=== PATIENT | male | born 1985 | race Caucasian/White ===

== ENCOUNTER → 2017-07-16 08:17 | Outpatient (CLI) | payer OTHER, SELFPAY ==
[2017-07-16 08:24] LABS: Bacteria 0 SEEN /hpf (None Seen); Mucous, Urine 0 SEEN /hpf (<or=2+); Red Blood Cells-Urine 0 SEEN /hpf (0-5); Squamous Epithelial Cells - UA 0 SEEN /hpf (0-5); White Blood Cells 0 SEEN /hpf (0-5)
[2017-07-16 11:06] LABS: Color, Urine Straw (Yellow); Glucose, Dipstick Normal (Normal); Ketone-Dipstick Negative (Negative); Leukocyte Esterase-Dipstick Negative /ul (Negative); Nitrite-Dipstick Negative (Negative); Occult Blood-Urine Negative /ul (Negative); Protein-Dipstick Negative (Negative); Specific Gravity, Urine 1.005 (1.002-1.030); Urine Bilirubin Dipstick Negative (Negative); Urine Clarity Clear (Clear); Urine Urobilinogen Normal (Normal)
[2017-07-16 11:19] LABS: Amphetamine Urine VISTA NEGATIVE (<1000 ng/mL); Barbiturate Urine VISTA NEGATIVE (< 200 ng/mL); Benzodiazepine Urine VISTA NEGATIVE (< 200 ng/mL); Cocaine Urine VISTA NEGATIVE (< 300 ng/mL); Ecstacy Urine VISTA NEGATIVE (< 500 ng/mL); Methadone Urine VISTA NEGATIVE (< 300 ng/mL); PCP Urine VISTA NEGATIVE (< 25 ng/mL); THC Urine VISTA NEGATIVE (< 50 ng/mL); Vista UDS pH Range 7
[2017-07-16 12:47] LABS: Chlamydia Trachomatis by PCR Negative (Negative); Neisserai gonorrhoeae by PCR Negative (Negative); Probe Check PASS; Sample Adequacy Control PASS; Specimen Processing Control PASS
== END ==
PROVIDERS: Family Provider Family Medicine; PCP Family Medicine; Visit Provider Family Medicine
DX: R30.0 Dysuria (principal); Z87.898 Personal history of other specified conditions
CPT/HCPCS: 80307; 81001; 87086; 87491; 87591

== ENCOUNTER 2018-12-18 01:49 | Emergency (ER) | payer OTHER, SELFPAY ==
[2018-12-18 01:50] VITALS: BP 140/90; PULSE 87; RESP 20; TEMP 36.6; O2SAT 97; BMI 22.1
--- NOTE | 2018-12-18 02:27 | ED.VIS.GEN ---
History of Present Illness Chief Complaint: Eye Problem Detail of Chief Complaint: Bilateral eye pain Informant: Patient, Family Onset: Yesterday Current Severity: Moderate Maximum Severity: Severe Narrative: Patient presents with bilateral eye pain, light sensitivity, and tearing. He was using a overlay plastician which he states is similar to a track welder at noon yesterday. Around 6-8PM he started developing bilateral eye pain and watering. He states he has had Welders burn before but never this severe. He does not wear glasses or contacts. He admits to not using any eye protection when he was using the cutter earlier. Past Medical History - Allergies and Home Meds Allergies/Adverse Reactions: Allergies No Known Allergies Allergy (Verified 12/18/18 01:52) Primary Care Physician: NOT,DEFINED [Primary Care Provider] - Prior records reviewed: Yes Past Medical History: - - Reviewed Lives: Spouse/ Significant Other Smoking Status: Current every day smoker Review of Systems General: Denies: Chills, Fever Eyes: Reports: - - Bilateral eye pain and watering ENT: Denies: Bilateral ear pain Cardiovascular: Denies: Chest pain Respiratory: Denies: Dyspnea Gastrointestinal: Denies: Abdominal pain Musculoskeletal: Denies: Neck pain, Back pain Neurological: Denies: Headache Physical Exam Vital Signs/Narrative: Vital Signs Temp Pulse Resp BP Pulse Ox 12/18/18 01:50 98 F 87 20 H 140/90 H 97 Inital Vital Signs reviewed: Yes General: Well nourished, Well developed Eyes: - - Mild eyelid edema. Eyes are injected and watering bilaterally. Pupils are equal and reactive. ENT: Moist mucous membranes Neck: Supple Cardiovascular: Regular rate, Regular rhythm Respiratory: No distress, CTA bilaterally Abdomen: Soft, Nontender Skin: Normal color Neurological: Alert, Oriented x3 Diagnostic/Tx/Re-eval - Medical Decision Making Tetracaine is applied to both eyes. Patient has resolution of his pain. Fluorescein stain reveals mild light uptake diffusely. Patient will be given a few [place] at home for pain. He will be given antibiotic eyedrops. Impression: UV keratitis ED Disposition - Plan for ED Patient: Disposition: Home or Assisted Living Diagnosis: UV keratitis Instructions: FLASH BURN, Eye Prescriptions: Hydrocodone Bitart/Apap 5-325 [[place] 5MG-325MG] 1 tab PO Q6H PRN PRN 3 Days #10 tab PRN Reason: Pain Prescription Printed Referrals: Marlo Martinez MD [STAFF PHYSICIAN] - 1-2 Days if not improving
[2018-12-18] MEDS: Fluorescein 1 MG STRIP 1 STRIP EACH EYE (02:40)
[2018-12-18] MEDS: Gentamicin Sulfate 1 OPTH.BTL 1 DRP EACH EYE (02:40)
[2018-12-18] MEDS: Tetracaine 0.5% Ophthalmic Bottle 1 DRP EACH EYE (02:43)
[2018-12-18 02:47] VITALS: BP 136/88; PULSE 82; RESP 16; O2SAT 96
== END 2018-12-18 02:47 | disposition home or self-care (01) ==
PROVIDERS: Emergency Provider Emergency Medicine; Family Provider Family Medicine; PCP Family Medicine
DX: H16.9 Unspecified keratitis (principal); F17.200 Nicotine dependence, unspecified, uncomplicated
CPT/HCPCS: 99282

== ENCOUNTER → 2025-01-13 | Outpatient (CLI) | payer BC, SELFPAY ==
--- OUTSIDE RECORDS SUMMARY | 2025-01-13 14:18 | XMS RPT_ITS | CCD ---
Author Organization [facility] Care Team Providers Care Dog Beautician Name Role Phone Yusef Hawthorne Primary Care Provider [phone] Adan Nye Primary Care Unavailable Provider, Ed Physician Attending Unavailab Yusef Evans Primary Care Provider Unavailable Primary Care Provider UnavailVERONIQUE Hurt Referring Unavailable VERONIQUE BUSTAMANTE Attending Unavailable ANA JESUS Attending Unavailable Medications Current Medications Medication Drug Class(es) Dates Sig (Normalized) Sig (Original) vancomycin 125 mg oral capsule (1 source) Glycopeptide Antibacterial Start: 11-30-2024 End: 12-10-2024 take 1 capsule by mouth four times daily vancomycin (VANCOCIN) 125 mg capsule Take 1 capsule by mouth four times daily for 10 days. 40 capsule 11/30/2024 12/10/2024 Active Problems Problem Classification Problem Date Documented Da te Episodic/Chronic Abdominal pain (2 sources) Pain in pelvis; Translations: [Pelvic and perineal pain] Onset: 11-28-2024 11-28-2024 Episodic Acute and chronic tonsillitis (1 source) Peritonsillar abscess; Translations: [Tonsil, abscess] Onset: 10-25-2024 Episodic Genitourinary symptoms and ill-defined conditions (2 sources) Microscopic hematuria; Translations: [Other microscopic hematuria] Onset: 11-28-2024 11-28-2024 Episodic Nausea and vomiting (2 sources) Nausea; Translations: [Nausea] Onset: 11-29-2024 11-28-2024 Episodic Other gastrointestinal disorders (1 source) Diarrhea; Translations: [Diarrhea, unspecified] 11-28-2024 Episodic Other gastrointestinal disorders (1 source) Diarrhea, unspecified; Translations: [Diarrhea, unspecified type] Onset: 11-28-2024 Episodic Other nutritional; endocrine; and metabolic disorders (1 source) Loss of appetite; Translations: [Anorexia] 11-28-2024 Episodic Other nutritional; endocrine; and metabolic disorders (1 source) Anorexia; Translations: [Loss of appetite] Onset: 11-28-2024 Episodic Other upper respiratory infections (1 source) Acute pharyngitis, unspecified; Translations: [Sore throat] Onset: 10-25-2024 Episodic Spondylosis; intervertebral disc disorders; other back problems (2 sources) Acute low back pain; Translations: [Acute low back pain without sciatica, unspecified back pain laterality] Episodic Results Test Name Value Interpretation Reference Range Facility Amylase SerPl-cCncon 025 Amylase [Catalytic activity/Vol] 51 U/L Normal 30-104 [facility] Comment on above: Order Comment: Michele sol Type: BLOOD SPECIMEN Ordering Facility: [facility] Address: [address] [place] [address] Performed By: #### 2 4323-8, 3040-3, 1798-8 #### [facility] CLIA [id number] [address] [place] [address] [place] C diff Tox gens Stl Ql MELVIN+p robeon 11-29-2024 C. difficile toxin genes MELVIN+probe Ql (Stl) Positive Abnormal Negative for C. difficile toxin by PCR [facility] Comment on above: Order Comment: Michele sol Type: STOOL SPECIMEN Ordering Facility: [facility] Address: [address] [place] [address] Result Comment: A po sitive PCR result may indicate C.difficile infection or colonization. The positive predictive value of this test for C.difficile infection is highest for patients with clinically significant diarrhea (>=3 unformed stools in 24h) who do not have an alternative explanation (e.g., recent receipt of laxatives). Toxin EIA testing will also be performed as recommended by IDSA clinical practice guidelines for institutions without pre-agreed criteria for specimen submission. Performed By: #### 5 4067-4, CDEIA #### [facility] CLIA [id number] [address] [id number] [address] [place] CBC W Auto Differential pane l (Bld)on 11-29-2024 Basophils (Bld) [#/Vol] 0.06 10*3/uL Normal <0.11 [facility] Comment on above: Order Comment: Speci men Type: BLOOD SPECIMEN Ordering Facility: [facility] Address: [address] [place] [address] Performed By: #### 5 7021-8 #### [facility] CLIA [id number] [address] [place] [address] [place] Basophils/100 WBC (Bld) 0.6 % Normal [facility] Comment on above: Order Comment: Speci men Type: BLOOD SPECIMEN Ordering Facility: [facility] Address: [address] [place] [address] Performed By: #### 5 7021-8 #### [facility] CLIA [id number] [address] [place] [address] [place] Differential cell count method Nom (Bld) Auto Normal [facility] Comment on above: Order Comment: Speci men Type: BLOOD SPECIMEN Ordering Facility: [facility] Address: [address] [place] [address] Performed By: #### 5 7021-8 #### [facility] CLIA [id number] [address] [place] [address] [place] Eosinophils (Bld) [#/Vol] 0.24 10*3/uL Normal <0.46 [facility] Comment on above: Order Comment: Speci men Type: BLOOD SPECIMEN Ordering Facility: [facility] Address: [address] [place] [address] Performed By: #### 5 7021-8 #### [facility] CLIA [id number] [address] [place] [address] [place] Eosinophils/100 WBC (Bld) 2.2 % Normal [facility] Comment on above: Order Comment: Speci men Type: BLOOD SPECIMEN Ordering Facility: [facility] Address: [address] [place] [address] Performed By: #### 5 7021-8 #### [facility] CLIA [id number] [address] [place] [address] [place] Erythrocyte distribution width (RBC) [Ratio] 12.5 % Normal 11.5-15.0 [facility] Comment on above: Order Comment: Speci men Type: BLOOD SPECIMEN Ordering Facility: [facility] Address: [address] [place] [address] Performed By: #### 5 7021-8 #### [facility] CLIA [id number] [address] [place] [address] [place] Hematocrit (Bld) [Volume fraction] 40.2 % Normal 39.0-51.0 [facility] Comment on above: Order Comment: Speci men Type: BLOOD SPECIMEN Ordering Facility: [facility] Address: [address] [place] [address] Performed By: #### 5 7021-8 #### [facility] CLIA [id number] [address] [place] [address] [place] Hemoglobin (Bld) [Mass/Vol] 13.8 g/dL Normal 13.0-17.0 [facility] Comment on above: Order Comment: Speci men Type: BLOOD SPECIMEN Ordering Facility: [facility] Address: [address] [place] [address] Performed By: #### 5 7021-8 #### [facility] CLIA [id number] [address] [place] [address] [place] Immature granulocytes (Bld) [#/Vol] 0.03 10*3/uL Normal <0.10 [facility] Comment on above: Order Comment: Speci men Type: BLOOD SPECIMEN Ordering Facility: [facility] Address: [address] [place] [address] Performed By: #### 5 7021-8 #### [facility] CLIA [id number] [address] [place] [address] [place] Immature granulocytes/100 WBC (Bld) 0.3 % Normal [facility] Comment on above: Order Comment: Speci men Type: BLOOD SPECIMEN Ordering Facility: [facility] Address: [address] [place] [address] Performed By: #### 5 7021-8 #### [facility] CLIA [id number] [address] [place] [address] [place] Lymphocytes (Bld) [#/Vol] 2.55 10*3/uL Normal 1.00-4.00 [facility] Comment on above: Order Comment: Speci men Type: BLOOD SPECIMEN Ordering Facility: [facility] Address: [address] [place] [address] Performed By: #### 5 7021-8 #### [facility] CLIA [id number] [address] [place] [address] [place] Lymphocytes/100 WBC (Bld) 23.4 % Normal [facility] Comment on above: Order Comment: Speci men Type: BLOOD SPECIMEN Ordering Facility: [facility] Address: [address] [place] [address] Performed By: #### 5 7021-8 #### [facility] CLIA [id number] [address] [place] [address] [place] MCH (RBC) [Entitic mass] 32.3 pg Normal 26.0-34.0 [facility] Comment on above: Order Comment: Speci men Type: BLOOD SPECIMEN Ordering Facility: [facility] Address: [address] [place] [address] Performed By: #### 5 7021-8 #### [facility] CLIA [id number] [address] [place] [address] [place] MCHC (RBC) [Mass/Vol] 34.3 g/dL Normal 30.5-36.0 [facility] Comment on above: Order Comment: Speci men Type: BLOOD SPECIMEN Ordering Facility: [facility] Address: [address] [place] [address] Performed By: #### 5 7021-8 #### [facility] CLIA [id number] [address] [place] [address] [place] MCV (RBC) [Entitic vol] 94.1 fL Normal 80.0-100.0 [facility] Comment on above: Order Comment: Speci men Type: BLOOD SPECIMEN Ordering Facility: [facility] Address: [address] [place] [address] Performed By: #### 5 7021-8 #### [facility] CLIA [id number] [address] [place] [address] [place] Monocytes (Bld) [#/Vol] 0.84 10*3/uL Normal <0.87 [facility] Comment on above: Order Comment: Speci men Type: BLOOD SPECIMEN Ordering Facility: [facility] Address: [address] [place] [address] Performed By: #### 5 7021-8 #### [facility] CLIA [id number] [address] [place] [address] [place] Monocytes/100 WBC (Bld) 7.7 % Normal [facility] Comment on above: Order Comment: Speci men Type: BLOOD SPECIMEN Ordering Facility: [facility] Address: [address] [place] [address] Performed By: #### 5 7021-8 #### [facility] CLIA [id number] [address] [place] [address] [place] Neutrophils (Bld) [#/Vol] 7.18 10*3/uL Normal 1.45-7.50 [facility] Comment on above: Order Comment: Speci men Type: BLOOD SPECIMEN Ordering Facility: [facility] Address: [address] [place] [address] Performed By: #### 5 7021-8 #### [facility] CLIA [id number] [address] [place] [address] [place] Neutrophils/100 WBC (Bld) 65.8 % Normal [facility] Comment on above: Order Comment: Speci men Type: BLOOD SPECIMEN Ordering Facility: [facility] Address: [address] [place] [address] Performed By: #### 5 7021-8 #### [facility] CLIA [id number] [address] [place] [address] [place] Nucleated RBC (Bld) [#/Vol] 10*3/uL Normal <0.01 [facility] Comment on above: Order Comment: Speci men Type: BLOOD SPECIMEN Ordering Facility: [facility] Address: [address] [place] [address] Performed By: #### 5 7021-8 #### [facility] CLIA [id number] [address] [place] [address] [place] Nucleated RBC/100 WBC (Bld) [Ratio] 0.0 /100 WBC Normal [facility] Comment on above: Order Comment: Speci men Type: BLOOD SPECIMEN Ordering Facility: [facility] Address: [address] [place] [address] Performed By: #### 5 7021-8 #### [facility] CLIA [id number] [address] [place] [address] [place] Platelet mean volume (Bld) [Entitic vol] 9.1 fL Normal 9.0-12.7 [facility] Comment on above: Order Comment: Speci men Type: BLOOD SPECIMEN Ordering Facility: [facility] Address: [address] [place] [address] Performed By: #### 5 7021-8 #### [facility] CLIA [id number] [address] [place] [address] [place] Platelets (Bld) [#/Vol] 372 10*3/uL Normal 150-400 [facility] Comment on above: Order Comment: Speci men Type: BLOOD SPECIMEN Ordering Facility: [facility] Address: [address] [place] [address] Performed By: #### 5 7021-8 #### [facility] CLIA [id number] [address] [place] [address] [place] RBC (Bld) [#/Vol] 4.27 10*6/uL Normal 4.20-6.00 [facility] Comment on above: Order Comment: Speci men Type: BLOOD SPECIMEN Ordering Facility: [facility] Address: [address] [place] [address] Performed By: #### 5 7021-8 #### [facility] CLIA [id number] [address] [place] [address] [place] WBC (Bld) [#/Vol] 10.90 10*3/uL Normal 3.70-11.00 [facility] Comment on above: Order Comment: Speci men Type: BLOOD SPECIMEN Ordering Facility: [facility] Address: [address] [place] [address] Performed By: #### 5 7021-8 #### [facility] CLIA [id number] [address] [place] [address] [place] CLOSTRIDIUM DIFFICILE TOXIN BY EIAon 11-29-2024 C. difficile toxin A+B IA Ql (Stl) Detected Abnormal Negative for C. difficile toxin [facility] Comment on above: Order Comment: Speci men Type: STOOL SPECIMENOrdering Facility: [facility] Address: [address] [place] [address] Performed By: #### 5 4067-4, CDEIA ####[facility] [id number] [place] [address] [place] Comprehensive metabolic 2000 panelon 11-29-2024 Albumin [Mass/Vol] 4.6 g/dL Normal 3.9-4.9 [facility] Comment on above: Order Comment: Speci men Type: BLOOD SPECIMEN Ordering Facility: [facility] Address: [address] [place], [place] [address] Performed By: #### 2 4323-8, 3039-3, 1797-10 #### [facility] CLIA [id number] [address] [place], [place] [address] [place] ALP [Catalytic activity/Vol] 74 U/L Normal 38-113 [facility] Comment on above: Order Comment: Speci men Type: BLOOD SPECIMEN Ordering Facility: [facility] Address: [address] [place], [place] [address] Performed By: #### 2 4323-8, 3, 1797-10 #### [facility] CLIA [id number] [address] [place] [address] [place] ALT [Catalytic activity/Vol] 18 U/L Normal 10-54 [facility] Comment on above: Order Comment: Speci men Type: BLOOD SPECIMEN Ordering Facility: [facility] Address: [address] [place] [address] Performed By: #### 2 4323-8, 3, 1797-10 #### [facility] CLIA [id number] [address] [place] [address] [place] Anion gap [Moles/Vol] 13 mmol/L Normal 8-15 [facility] Comment on above: Order Comment: Speci men Type: BLOOD SPECIMEN Ordering Facility: [facility] Address: [address] [place], [place] [address] Performed By: #### 2 4323-8, 3, 1797-10 #### [facility] CLIA [id number] [address] [place] [address] [place] AST [Catalytic activity/Vol] 25 U/L Normal 14-40 [facility] Comment on above: Order Comment: Speci men Type: BLOOD SPECIMEN Ordering Facility: [facility] Address: [address] [place], [place] [address] Performed By: #### 2 4323-8, 304-3, 1797-10 #### [facility] CLIA [id number] [address] [place] [address] [place] Bilirubin [Mass/Vol] 0.3 mg/dL Normal 0.2-1.3 [facility] Comment on above: Order Comment: Speci men Type: BLOOD SPECIMEN Ordering Facility: [facility] Address: [address] [place] [address] Performed By: #### 2 4323-8, 3039-3, 1797-10 #### [facility] CLIA [id number] [address] [place] [address] [place] Calcium [Mass/Vol] 9.7 mg/dL Normal 8.5-10.2 [facility] Comment on above: Order Comment: Speci men Type: BLOOD SPECIMEN Ordering Facility: [facility] Address: [address] [place] [address] Performed By: #### 2 4323-8, 3039-3, 1797-10 #### [facility] CLIA [id number] [address] [place] [address] [place] Chloride [Moles/Vol] 104 mmol/L Normal 98-107 [facility] Comment on above: Order Comment: Speci men Type: BLOOD SPECIMEN Ordering Facility: [facility] Address: [address] [place] [address] Performed By: #### 2 4323-8, 3039-3, 1797-10 #### [facility] CLIA [id number] [address] [place], [place] [address] [place] CO2 [Moles/Vol] 25 mmol/L Normal 22-30 [facility] Comment on above: Order Comment: Speci men Type: BLOOD SPECIMEN Ordering Facility: [facility] Address: [address] [place], [place] [address] Performed By: #### 2 4323-8, 3039-3, 1797-10 #### [facility] CLIA [id number] [address] [place] [address] [place] Creatinine [Mass/Vol] 0.92 mg/dL Normal 0.73-1.22 [facility] Comment on above: Order Comment: Speci men Type: BLOOD SPECIMEN Ordering Facility: [facility] Address: [address] [place] [address] Performed By: #### 2 4323-8, 3039-3, 1797-10 #### [facility] CLIA [id number] [address] [place] [address] [place] eGFRcr SerPlBld CKD-EPI 2020 109 mL/min/1.73m??? Normal >=60 [facility] Comment on above: Order Comment: Michele sol Type: BLOOD SPECIMEN Ordering Facility: [facility] Address: [address] [place] [address] Result Comment: Kaelyn mated Glomerular Filtration Rate (eGFR) is calculated using the 2020 CKD-EPI creatinine equation. This equation utilizes serum creatinine, sex, and age as parameters. The creatinine assay has traceable calibration to isotope dilution-mass spectrometry. Refer to KDIGO guidelines for clinical interpretation. In patients with unstable renal function, e.g. those with acute kidney injury, the eGFR may not accurately reflect actual GFR. Performed By: #### 2 4323-8, 3, 1797-10 #### [facility] CLIA [id number] [address] [place] [address] [place] Glucose [Mass/Vol] 78 mg/dL Normal 74-99 [facility] Comment on above: Order Comment: Speci men Type: BLOOD SPECIMEN Ordering Facility: [facility] Address: [address] [place] [address] Result Comment: The [place] [employer] (ADA) provides guidance for cutoff values for fasting glucose and random glucose. The ADA defines fasting as no caloric intake for at least 8 hours. Fasting plasma glucose results between 100 to 125 mg/dL indicate increased risk for diabetes (prediabetes). Fasting plasma glucose results greater than or equal to 126 mg/dL meet the criteria for diagnosis of diabetes. In the absence of unequivocal hyperglycemia, results should be confirmed by repeat testing. In a patient with classic symptoms of hyperglycemia or hyperglycemic crisis, random plasma glucose results greater than or equal to 200 mg/dL meet the criteria for diagnosis of diabetes. Reference: Standards of Medical Care in Diabetes 2016, [place] [employer]. Diabetes Care. 2016.39(Suppl 1). Performed By: #### 2 4323-8, 3, 1797-10 #### [facility] CLIA [id number] [address] [place] [address] [place] Potassium [Moles/Vol] 4.3 mmol/L Normal 3.7-5.1 [facility] Comment on above: Order Comment: Speci men Type: BLOOD SPECIMEN Ordering Facility: [facility] Address: [address] [place] [address] Performed By: #### 2 8, 3039-05, 1797-10 #### [facility] CLIA [id number] [address] [place] [address] [place] Protein [Mass/Vol] 7.3 g/dL Normal 6.3-8.0 [facility] Comment on above: Order Comment: Speci men Type: BLOOD SPECIMEN Ordering Facility: [facility] Address: [address] [place] [address] Performed By: #### 2 4322-8, 3039-05, 1797-10 #### [facility] CLIA [id number] [address] [place] [address] [place] Sodium [Moles/Vol] 142 mmol/L Normal 136-144 [facility] Comment on above: Order Comment: Speci men Type: BLOOD SPECIMEN Ordering Facility: [facility] Address: [address] [place] [address] Performed By: #### 2 4323-8, 3, 1797-10 #### [facility] CLIA [id number] [address] [place] [address] [place] Urea nitrogen [Mass/Vol] 10 mg/dL Normal 9-24 [facility] Comment on above: Order Comment: Speci men Type: BLOOD SPECIMEN Ordering Facility: [facility] Address: [address] [place] [address] Performed By: #### 2 4323-8, 3040-3, 1798-8 #### [facility] CLIA [id number] [address] [place] [address] [place] Gastrointestinal pathogens i dentified MELVIN+probe Nom (Stl)on 11-29-2024 Campylobacter sp DNA MELVIN+probe Nom (Unsp spec) Not detected Normal Not Detected [facility] Comment on above: Order Comment: Speci men Type: STOOL SPECIMEN Ordering Facility: [facility] Address: [address] [place] [address] Performed By: #### 7 9390-1 #### [facility] CLIA [id number] [address] [place] [address] [place] Salmonella sp DNA MELVIN+probe Ql (Unsp spec) Not detected Normal Not Detected [facility] Comment on above: Order Comment: Speci men Type: STOOL SPECIMEN Ordering Facility: [facility] Address: [address] [place] [address] Performed By: #### 7 9390-1 #### [facility] CLIA [id number] [address] [place] [address] [place] Shiga toxin stx gene MELVIN+probe Nom (Unsp spec) Not detected Normal Not Detected [facility] Comment on above: Order Comment: Speci men Type: STOOL SPECIMEN Ordering Facility: [facility] Address: [address] [place] [address] Performed By: #### 7 9390-1 #### [facility] CLIA [id number] [address] [place] [address] [place] Shigella sp DNA MELVIN+probe Ql (Unsp spec) Not detected Normal Not Detected [facility] Comment on above: Order Comment: Speci men Type: STOOL SPECIMEN Ordering Facility: [facility] Address: [address] [place] [address] Performed By: #### 7 9390-1 #### [facility] CLIA [id number] [address] [place] [address] [place] Lipase SerPl-cCncon 11-30-19 25 Lipase [Catalytic activity/Vol] 25 U/L Normal 16-61 [facility] Comment on above: Order Comment: Speci men Type: BLOOD SPECIMEN Ordering Facility: [facility] Address: [address] [place] [address] Performed By: #### 2 4323-8, 3040-3, [id number] #### [facility] CLIA [id number] [address] [place] [address] [place] O+P Spec Microon 11-29-2024 Ova and parasites identified LM Nom (Unsp spec) OVA AND PARASITE EXAM: No Parasites Seen Normal [facility] Comment on above: Performed By: #### 6 73-4 #### [facility] CLIA [id number] [address] [place] [address] [place] Bacteria Ur Culton 5 Bacteria identified Cx Nom (U) CULTURE, URINE: No growth (<1,000 CFU/ml) Normal [facility] Comment on above: Performed By: #### 6 30-4 #### [facility] CLIA [id number] [address] [place] [address] [place] CNOVon 11-28-2024 CNOV Office Visit ([facility]) TERESA,PARKER D ([id number]) 1985 M Date Time Provider Department 11/28/24 5:15 PM VERONIQUE BUSTAMANTE During your visit today, we recorded the following information about you: Temperature Pulse Respiration Blood pressure 98.2 degrees 92/minute 16/minute 102/64 Weight 79.1 kg Veronique Bustamante APRN.[facility] 11/28/2024 5:41 PM Signed [facility] [place] Moore is a 39 year old male. Patient presents with: Diarrhea: gi upset and nausea x 1 week Diarrhea Pertinent negatives include no chills. The patient is a 39-year-old male presenting with abdominal pain, diarrhea, and anorexia x1 week. Abdominal Pain and Diarrhea: - Abdominal pain and diarrhea x1 week. - Initially experienced fever and chills for 2 days, which have since resolved. - Reports anorexia and immediate diarrhea following food intake. - Describes stools as partially formed, followed by diarrhea. - Recent travel to [place]; symptoms worsened after returning. - Denies use of medications for symptom relief; increasing fluid intake with Gatorade and water. - Denies hematochezia, melena, nausea, or emesis. - Describes some pelvic cramping and discomfort Dysuria: - Reports mild dysuria. Reports recent use of clindamycin for 10 days for treatment of suspected tonsillar abscess (see 10/25/24 visit). Review of Systems Constitutional: Positive for appetite change and fatigue. Negative for chills and fever. Gastrointestinal: Positive for diarrhea. Constitutional: (+) decreased appetite Gastrointestinal: (+) abdominal pain, (+) diarrhea Genitourinary: (+) dysuria Musculoskeletal: (+) myalgias Objective BP 102/64 Pulse 92 Temp 36.8 ?C (98.2 ?F) Resp 16 Wt 79.1 kg (174 lb 6.1 oz) SpO2 97% No past medical history on file. No past surgical history on file. ALLERGIES Patient has no known allergies. MEDICATIONS No prescriptions on file. No family history on file. SOCIAL HISTORY[1] Physical Exam Vitals and nursing note reviewed. Constitutional: General: He is not in acute distress. Appearance: Normal appearance. He is not ill-appearing. Cardiovascular: Rate and Rhythm: Normal rate and regular rhythm. Heart sounds: Normal heart sounds. Pulmonary: Effort: Pulmonary effort is normal. No respiratory distress. Breath sounds: Normal breath sounds. No wheezing or rales. Abdominal: General: Bowel sounds are normal. There is no distension. Palpations: Abdomen is soft. There is no mass. Tenderness: There is generalized abdominal tenderness. There is no guarding. Skin: General: Skin is warm and dry. Findings: No erythema or rash. Neurological: Mental Status: He is alert. { 1. Pelvic cramping (R10.2) 2. Nausea (R11.0) 3. Diarrhea, unspecified type (R19.7) 4. Loss of appetite (R63.0) - Acute onset of symptoms for one week, including nausea, decreased appetite, and diarrhea following travel to [place]; initial fever and chills resolved after two days. - Differential includes infectious gastroenteritis - Ordered stool studies to evaluate for bacterial pathogens. - Ordered basic blood work to assess for infection and evaluate liver and kidney function. - Advised to maintain adequate hydration with water and Gatorade. - Will defer medication until diagnostic results are available. - Will follow up with patient by phone once results are available. 5. Microscopic hematuria (R31.29) - Urinalysis showed trace blood and ketones no convincing evidence of UTI. - Urine sample sent for culture to rule out infection. - Follow-up with your PCP in 3-5 days if symptoms have not improved or sooner if symptoms worsen - Discussed red flags and need for immediate medical evaluation if any occur. - Discussed supportive care treatment with fluids, rest and analgesia. - Discussed expected course of illness Veronique Bustamante APRN.[employer] and Recording using girnarsoft software for draft documentation of the visit was discussed with the patient/authorized patient relations representative; all questions welcomed and answered. Patient/authorized patient relations representative agreed to proceed Disposition The patient was discharged. OTC Medications were advised: Tylenol/ibuprofen Procedures [1] Social History Tobacco Use - Smoking status: Every Day Types: Cigarettes - Smokeless tobacco: Never Veronique Bustamante APRN.[employer] 11/28/2024 5:37 PM Signed 1. Pelvic cramping (R10.2) 2. Nausea (R11.0) 3. Diarrhea, unspecified type (R19.7) 4. Loss of appetite (R63.0) - Acute onset of symptoms for one week, including nausea, decreased appetite, and diarrhea following travel to [place]; initial fever and chills resolved after two days. - Differential includes infectious gastroenteritis - Ordered stool studies to evaluate for bacterial pathogens. - Ordered basic blood work (more content not included)... Normal [facility] UA DIP, URINE (POC)on 2024 BILIRUBIN UA (POCT) Negative Negative [facility] CLARITY UA (POCT) Clear [facility] COLOR UA (POCT) Yellow [facility] GLUCOSE UA (POCT) Negative Negative mg/dL [facility] Hemoglobin Ql (U) Trace-intact Abnormal Negative [facility] Interpretation and review of laboratory results Abnormal [facility] KETONE UA (POCT) Trace Negative mg/dL [facility] LEUKOCYTES UA (POCT) Negative Negative [facility] NITRITE UA (POCT) Negative Negative [facility] PH UA (POCT) 5.5 4.5 - 8.0 [facility] Protein Ql (U) Negative Negative mg/dL [facility] SPECIFIC GRAVITY UA (POCT) >=1.030 1.005 - 1.030 [facility] UROBILINOGEN UA (POCT) 0.2 Normal E.U./dL [facility] Location:[facility], [address] [place] [address], [place], [place], [id number] [place] [address] POINT OF CARE [facility] CNOVon 10-25-2024 CNOV Office Visit ([facility]) PARKER MOORE ([id number]) 1985 M Date Time Provider Department 10/25/24 2:15 PM ANA JESUS During your visit today, we recorded the following information about you: Temperature Pulse Respiration Blood pressure 99.2 degrees 85/minute 20/minute 157/82 Weight 77 kg Ana Jesus, DIRECTOR OF CARDIAC REHABILITATION.[employer] 10/25/2024 2:47 PM Signed - Clindamycin 3 times per day - Follow up with ENT - If you are unable to swallow your saliva, difficult breathing, develop a hot potato voice, or other severe or concerning symptoms go to the ER Ana Jesus APRN.CNP 10/25/2024 3:17 PM Signed [facility] [place] Moore is a 39 year old male. Patient presents with: Sore Throat: Headache, Left side of throat swollen redness and pain x 5 days Ear Pain: Left ear pain x 5 days Sore Throat Ear Pain Associated symptoms include a sore throat. Sore Throat: - Onset of last week. - Able to swallow saliva, though it is uncomfortable. Left Otalgia: - Onset of last week. - Describes pain as killing me. Headache: - Onset of last week. - Intermittent, with increased severity when medication wears off. URI Symptoms: - Left-sided nasal congestion, resolved today. - Denies cough. Review of Systems HENT: Positive for sore throat. Head: (+) headache Ears/Nose/Mouth/Throa t: (+) sore throat, (+) left ear pain, (-) runny nose, (-) nasal congestion, (-) dysphagia Respiratory: (-) cough Psychiatric: (+) anxiety Objective BP 157/82 Pulse 85 Temp 37.3 ?C (99.2 ?F) Resp 20 Wt 77 kg (169 lb 12.1 oz) SpO2 98% Physical Exam Vitals reviewed. Constitutional: Appearance: Normal appearance. HENT: Head: Normocephalic. Jaw: No trismus. Right Ear: Tympanic membrane, ear canal and external ear normal. Left Ear: Tympanic membrane, ear canal and external ear normal. Mouth/Throat: Mouth: Mucous membranes are moist. Pharynx: Uvula midline. Posterior oropharyngeal erythema present. No oropharyngeal exudate. Tonsils: Tonsillar abscess present. No tonsillar exudate. Eyes: Extraocular Movements: Extraocular movements intact. Cardiovascular: Rate and Rhythm: Normal rate and regular rhythm. Heart sounds: Normal heart sounds. Pulmonary: Effort: Pulmonary effort is normal. No respiratory distress. Breath sounds: Normal breath sounds. No wheezing, rhonchi or rales. Lymphadenopathy: Cervical: Cervical adenopathy present. Neurological: Mental Status: He is alert. Assessment/Plan: { 1. Sore throat (J02.9) 2. Tonsil, abscess (J36) - Acute onset of symptoms since last , including sore throat, severe left ear pain, headache, and transient nasal congestion; no cough or significant dysphagia. - Strep test performed during visit that was negative - left tonsil is 2-3+ in erythematous. No exudate - he is tolerating secretions and able to speak in complete sentences - will start treatment with clindamycin - Encouraged to follow-up with ENT - reviewed symptoms to present to ER and to have a low threshold to go Recording using girnarsoft software for draft documentation of the visit was discussed with the patient/authorized patient relations representative; all questions welcomed and answered. Patient/authorized patient relations representative agreed to proceed Ana Jesus APRN.[employer] MDM Procedures Allergies As of Date: 10/25/2024 (No Known Allergies) Date Reviewed: 10/25/2024 Reviewed by: Tory Sandoval LPN - Fully Assessed Reason for Visit: Sore Throat [200] Cmt: Headache, Left side of throat swollen redness and pain x 5 days Ear Pain [817] Cmt: Left ear pain x 5 days Primary Visit Diagnosis:Sore throat [J02.9] Other Visit Diagnosis:Tonsil, abscess [J36] Order(s):STREP A MOLECULAR (POC) [[id number]] Order #: [id number]. #:[id number] clindamycin (CLEOCIN) 300 mg capsuleTake 1 capsule by mouth three times a day for 10 days.Disp: 30 capsuleRfl: 0 Prescriptions as of 10/25/2024 - clindamycin (CLEOCIN) 300 mg capsule Take 1 capsule by mouth three times a day for 10 days. Problem List As Of Date: 10/25/2024 (None) Other instructions from your clinician: - Clindamycin 3 times per day - Follow up with ENT - If you are unable to swallow your saliva, difficult breathing, develop a hot potato voice, or other severe or concerning symptoms go to the ER Prescriptions ordered this encounter Disp Refills Start End CLINDAMYCIN HCL 300 MG CAPSULE 30 c* 0 10/25/2024 11/04/2024 Route: PO Sig: Take 1 capsule by mouth three times a day for 10 days. Level of Service: OFFICE/OUTPATIENT NEW LOW MDM 30 MINUTES [99204] Encounter Status:Closed by ANA JESUS on 10/25/24 Normal [facility] XR LUMBAR GENERAL 3V AP/LAT/ L5-S1on 07-19-2021 [facility] XR Lumbar spine 3 Viewson IMPRESSION: Negative lumbar spine X-ray. Linux Admin: PSCB Transcribe Date/Time: Jul 19 2021 2:09P Dictated by : POPPY GOMEZ MD This examination was interpreted and the report reviewed and electronically signed by: POPPY GOMEZ MD on Jul 19 2021 2:10PM EST JersonZZ_DO_NOT_USE _DIVISION OF RADIOLOGY * * *Final Report* * * DATE OF EXAM: Jul 19 2021 2:06PM [facility] [id number] - XR LUMBAR 3V AP/LAT/L5-S1 / PROCEDURE REASON: Acute low back pain without sciatica, unspecified back pain laterality * * * * Physician Interpretation * * * * EXAM TITLE: XR LUMBAR 3V AP/LAT/L5-S1 EXAM DATE/TIME: 07/19/2021 2:06 PM COMPARISON: None. CLINICAL INDICATION/HISTORY: Low back pain. TECHNIQUE: AP, lateral and cone down lateral views of the lumbar spine are presented. FINDINGS: There are five bzl-woz-vijkmis lumbar vertebrae. No fracture or subluxations are noted. The disc spaces are well preserved. There is no significant osteophyte formation. ZZZ_DO_NOT_USE _DIVISION OF RADIOLOGY Provider, [facility] - 07/19/2021 * * *Final Report* * * DATE OF EXAM: Jul 19 2021 2:06PM [facility] [id number] - XR LUMBAR 3V AP/LAT/L5-S1 / PROCEDURE REASON: Acute low back pain without sciatica, unspecified back pain laterality * * * * Physician Interpretation * * * * EXAM TITLE: XR LUMBAR 3V AP/LAT/L5-S1 EXAM DATE/TIME: 07/19/2021 2:06 PM COMPARISON: None. CLINICAL INDICATION/HISTORY: Low back pain. TECHNIQUE: AP, lateral and cone down lateral views of the lumbar spine are presented. FINDINGS: There are five utp-zty-atzicsb lumbar vertebrae. No fracture or subluxations are noted. The disc spaces are well preserved. There is no significant osteophyte formation. IMPRESSION IMPRESSION: Negative lumbar spine X-ray. Linux Admin: DEBORAH Transcribe Date/Time: Jul 19 2021 2:09P Dictated by : POPPY GOMEZ MD This examination was interpreted and the report reviewed and electronically signed by: POPPY GOMEZ MD on Jul 19 2021 2:10PM EST [facility] Radiology Study observation (narrative) [facility] XR Lumbar spine 3 ViewsOrder ed By: Ccf Provider on 07-19-2021 [facility] Vital Signs Date Time Vital Sign Value Performing Clinician Janet guardado 11-28-2024 17:08-0400 Body temperature 98.2 [degF] Veronique Praisler-Wood DIRECTOR OF CARDIAC REHABILITATION.[employer] Work Phone: [facility] 11-28-2024 17:08-0400 Body weight 79.1 kg Veronique Praisler-Wood DIRECTOR OF CARDIAC REHABILITATION.[employer] Work Phone: [facility] 11-28-2024 17:08-0400 Diastolic blood pressure 64 mm[Hg] Veronique Praisler-Wood DIRECTOR OF CARDIAC REHABILITATION.[employer]ER Work Phone: [facility] 11-28-2024 17:08-0400 Heart rate 92 /min Veronique Praisler-Wood DIRECTOR OF CARDIAC REHABILITATION.[employer]ER Work Phone: [facility] 11-28-2024 17:08-0400 Respiratory rate 16 /min Veronique Praisler-Wood DIRECTOR OF CARDIAC REHABILITATION.[employer]ER Work Phone: [facility] 11-28-2024 17:08-0400 SaO2% (BldA) [Mass fraction] 97 % Veronique Praisler-Wood DIRECTOR OF CARDIAC REHABILITATION.[employer]ER Work Phone: [facility] 11-28-2024 17:08-0400 Systolic blood pressure 102 mm[Hg] Veronique Praisler-Wood DIRECTOR OF CARDIAC REHABILITATION.[employer] Work Phone: [facility] 07-19-2021 13:46-0400 Body temperature 98.01 [degF] Merry Athy PA-C Work Phone: [facility] 07-19-2021 13:46-0400 Body weight 74.93 kg Merry Athy PA-C Work Phone: [facility] 07-19-2021 13:46-0400 Diastolic blood pressure 82 mm[Hg] Merry Athy PA-C Work Phone: [facility] 07-19-2021 13:46-0400 Heart rate 81 /min Merry Athy PA-C Work Phone: [facility] 07-19-2021 13:46-0400 Respiratory rate 21 /min Mrery Athy PA-C Work Phone: [facility] 07-19-2021 13:46-0400 SaO2% (BldA) [Mass fraction] 98 % Merry Athy PA-C Work Phone: [facility] 07-19-2021 13:46-0400 Systolic blood pressure 130 mm[Hg] Merry Athy PA-C Work Phone: [facility] Encounters Encounter Date Encounter Type Care Provider Facility Start: 11-29-2024 End: 11-29-2024 ambulatory VERONIQUE BUSTAMANTE Facility:[facility] Start: 11-28-2024 End: 11-28-2024 Patient encounter procedure Veronique Bustamante APRN.[employer] Work Phone: [facility] Comment on above: Pelvic cramping (Maria Isabel joanne Dx); Nausea; Diarrhea, unspecified type; Microscopic hematuria; Loss of appetite Start: 11-28-2024 End: 11-29-2024 ambulatory VERONIQUE BUSTAMANTE Facility:[facility] Start: 11-28-2024 End: 11-30-2024 Follow-up encounter Veronique Bustamante APRN.[employer] Work Phone: [facility] Comment on above: Results Start: 10-25-2024 End: 10-25-2024 ambulatory ANA JESUS Facility:[facility] Start: 03-07-2023 ambulatory Adan Nye Facilit y:[facility] Start: 07-19-2021 End: 07-19-2021 Subsequent hospital visit by physician Xr [facility] Work Phone: Radiology Comment on above: Acute low back pain without sciatica, unspecified back pain laterality [M54.50] Start: 07-19-2021 End: 07-19-2021 Patient encounter procedure Merry Patel PA-C Work Phone: [facility] Comment on above: Acute low back pain without sciatica, unspecified back pain laterality (Primary Dx) Procedures Date Procedure Procedure Detail Performing Clinician Start: 11-28-2024 Urnls dip stick/tabl et rgnt auto w/o microscopy Veronique Bustamante APRN.CNP Work Phone: Start: 07-19-2021 Radex spine lumbosac ral 2/3 views Merry Patel PA-C Work Phone: Plan of Treatment Date Care Activity Detail Author Start: 11-28-2024 End: 02-27-2025 Amylase [Enzymatic activity/volume] in Serum or Plasma AMYLASE Lab Routine Nausea Expected: 11/28/2024, Expires: 02/27/2025 [facility] Comment on above: Expected: 11/28/2024 , Expires: 02/27/2025 Start: 11-28-2024 End: 02-27-2025 CBC W Auto Differential panel - Blood COMPLETE BLOOD COUNT AND DIFFERENTIAL Lab Routine Nausea Expected: 11/28/2024, Expires: 02/27/2025 [facility] Comment on above: Expected: 11/28/2024 , Expires: 02/27/2025 Start: 11-28-2024 End: 02-27-2025 Comprehensive metabolic 2000 panel - Serum or Plasma COMPREHENSIVE METABOLIC PANEL Lab Routine Nausea Expected: 11/28/2024, Expires: 02/27/2025 [facility] Comment on above: Expected: 11/28/2024 , Expires: 02/27/2025 Start: 11-28-2024 End: 02-27-2025 Lipase [Enzymatic activity/volume] in Serum or Plasma LIPASE Lab Routine Nausea Expected: 11/28/2024, Expires: 02/27/2025 [facility] Comment on above: Expected: 11/28/2024 , Expires: 02/27/2025 Start: 11-21-2024 Influenza vaccination Influenza Vacc ine (#1) [facility] Start: 11-22-2023 Covid-19 Vaccine ( season) Covid-19 Vaccine ( season) [facility] Start: 11-22-2023 Influenza vaccination Influenza Vacc ine (#1) [facility] Start: 11-21-2021 Influenza vaccination INFLUENZ A (Season Ended) [facility] Start: 2020 Lipid panel Lipid Screening [facility] Start: 2020 LIPID SCREEN LIPID SCREEN [facility] Start: 2012 HPV Vaccine (1 - 3-d ose SCDM series) HPV Vaccine (1 - 3-dose SCDM series) [facility] Start: 2004 Hepatitis B Vaccine (1 of 3 - 19+ 3-dose series) Hepatitis B Vaccine (1 of 3 - 19+ 3-dose series) [facility] Start: 2004 Pneumococcal vaccination Pneum ococcal Vaccine (1 of 2 - PCV) [facility] Start: 2004 Urine microalbumin profile [facility] Start: 09-12-2003 Anxiety Screening Anxiety Screening [facility] Start: 09-12-2003 Depression Screening Depression Scre [facility] Start: 09-12-2003 HEPATITIS C SCREENING HEPATITIS C [facility] Start: 09-12-2003 Hepatitis C screening Hepatitis C [facility] Start: 09-12-2003 HIV SCREENING HIV SCREENING [facility] Start: 09-12-2003 HIV screening HIV Screening [facility] Start: 1997 Adult depression screening assessment DEPRESSION SCREENING [facility] Start: 1990 COVID-19 VACCINE (1) COVID-19 VACCIN E (1) [facility] Bacteria identified in Urine by Culture BACTERIAL CULTURE, URINE Microbiology Routine Microscopic hematuria Ordered: 11/28/2024 [facility] Comment on above: Ordered: 11/28/2024 Clostridioides diffi cile toxin genes [Presence] in Stool by MELVIN with probe detection CLOSTRIDIUM DIFFICILE TOXIN BY PCR Lab Routine Diarrhea, unspecified type Ordered: 11/28/2024 [facility] Comment on above: Ordered: 11/28/2024 ENTERIC BACTERIAL PA CHRISTIANE BY PCR ENTERIC BACTERIAL PANEL BY PCR Lab Routine Nausea Ordered: 11/28/2024 [facility] Work Phone: Comment on above: Ordered: 11/28/2024 Ova and parasites identified in Unspecified specimen by Light microscopy OVA + PARA MICROSCOPIC Microbiology Routine Nausea Ordered: 11/28/2024 [facility] Comment on above: Ordered: 11/28/2024 Payers Date Payer Category Payer [employer] BLUE CARD PPO OOS [id number] 2023 Unknown [id number] 2023 Self-pay 2020 Unknown [employer] BLUE CARD PPO OOS [id number] 2020-Present [phone] [place] [address] PPO [id number] 2020 Unknown [employer] BLUE CARD PPO OOS [id number] 2020-Present [phone] [place], [place] [address] PPO [id number] Unknown [id number] Social History Date Type Detail Facility Tobacco smoking stat [facility] Tobacco smoking consumption unknown [facility] Start: 1985 Sex Assigned At [facility] on file [facility] Start: 10-25-2024 Gender identity Not on file [facility] Start: 10-25-2024 Tobacco smoking stat us MDIS Smokes tobacco daily [facility] History of tobacco use Cigarette Smoker C [facility] Start: 10-25-2024 Tobacco use and exposure Smokeless t obacco non-user [facility] Start: 10-25-2024 History of Social function [facility] Start: 02-22-2012 Sex Male [facility] Clinical Notes 07-19-2021 to 11-30-2024 Telephone Encounter - Karime Harmon MA - 11/30/2024 7:38 PM EDTTelephone Encounter - Karime Harmon MA - 11/30/2024 7:38 PM EDTTelephone Encounter - Karime Harmon MA - 11/30/2024 4:44 PM EDT Note Date & Type Note Facility 11-30-2024 Telephone encounter Note notified pt. Karime Harmon MA [facility] 11-30-2024 Miscellaneous Notes notified pt. Karime Harmon MA Patient given results and verbalized understanding of instructions given. Karime Harmon MA Unable to reach patient. Mailbox full/Mailbox not set up/ Number incorrect. Please try again later. Karime Harmon MA ----- Message from Tracie Jin APRN.[employer]ER sent at 11/30/2024 3:52 PM EDT ----- ----- Message ----- From: Stone Blanton Sent: 11/28/2024 5:30 PM EDT To: [facility] Patient's initial C. difficile test came back positive. This is a contagious diagnosis. Patient should be disinfecting the toilet after bowel movements and washing hands completely. It will be treated with vancomycin capsules 4 times a day for 10 days. It is important that patient finishes every single dose. Otherwise infection may not clear up. Still pending other testing documented in this encounter [facility] 11-30-2024 Telephone encounter Note Patient given results and verbalized understanding of instructions given. Karime Harmon MA [facility] 11-30-2024 Telephone encounter Note Unable to reach patient. Mailbox full/Mailbox not set up/ Number incorrect. Please try again later. Karime Harmon MA [facility] 11-30-2024 Telephone encounter Note ----- Message from Tracie Jin APRN.CNP sent at 11/30/2024 3:52 PM EDT ----- ----- Message ----- From: Stone Blanton Sent: 11/28/2024 5:30 PM EDT To: [facility] 11-30-2024 Telephone encounter Note Patient's initial C. difficile test came back positive. This is a contagious diagnosis. Patient should be disinfecting the toilet after bowel movements and washing hands completely. It will be treated with vancomycin capsules 4 times a day for 10 days. It is important that patient finishes every single dose. Otherwise infection may not clear up. Still pending other testing [facility] 11-28-2024 Instructions Veronique Bustamante APRN.MINK FARMER - 11/28/2024 5:37 PM EDT 1. Pelvic cramping (R10.2) 2. Nausea (R11.0) 3. Diarrhea, unspecified type (R19.7) 4. Loss of appetite (R63.0) - Acute onset of symptoms for one week, including nausea, decreased appetite, and diarrhea following travel to [place]; initial fever and chills resolved after two days. - Differential includes infectious gastroenteritis - Ordered stool studies to evaluate for bacterial pathogens. - Ordered basic blood work to assess for infection and evaluate liver and kidney function. - Advised to maintain adequate hydration with water and Gatorade. - Will defer medication until diagnostic results are available. - Will follow up with patient by phone once results are available. 5. Microscopic hematuria (R31.29) - Urinalysis showed trace blood and ketones no convincing evidence of UTI. - Urine sample sent for culture to rule out infection. - Keep drinking plenty of water to stay hydrated. - Tomorrow between 8:00 am and 5:00 pm, go to the main lobby and let them know you re there for blood work and to hot die picker a stool collection kit. No appointment is needed. - Have your blood drawn when you hot die picker the stool kit. - Follow the kit instructions to collect a stool sample and return it to the lab. - Your urine sample will be sent for culture, and your blood tests will check for infection and organ function. - We will call you with the results once they are available. documented in this encounter [facility] 11-28-2024 Note HNO ID: [id number] Author: VERONIQUE BUSTAMANTE APRN.BR[place]TON Service: ? Author Type: Nurse Practitioner Type: Progress Notes Filed: 11/28/2024 17:41 Note Text: [facility] [place]reraindiana Moore is a 39 year old male. Patient presents with: Diarrhea: gi upset and nausea x 1 week Diarrhea Pertinent negatives include no chills. The patient is a 39-year-old male presenting with abdominal pain, diarrhea, and anorexia x1 week. Abdominal Pain and Diarrhea: - Abdominal pain and diarrhea x1 week. - Initially experienced fever and chills for 2 days, which have since resolved. - Reports anorexia and immediate diarrhea following food intake. - Describes stools as partially formed, followed by diarrhea. - Recent travel to [place]; symptoms worsened after returning. - Denies use of medications for symptom relief; increasing fluid intake with Gatorade and water. - Denies hematochezia, melena, nausea, or emesis. - Describes some pelvic cramping and discomfort Dysuria: - Reports mild dysuria. Reports recent use of clindamycin for 10 days for treatment of suspected tonsillar abscess (see 10/25/24 visit). Review of Systems Constitutional: Positive for appetite change and fatigue. Negative for chills and fever. Gastrointestinal: Positive for diarrhea. Constitutional: (+) decreased appetite Gastrointestinal: (+) abdominal pain, (+) diarrhea Genitourinary: (+) dysuria Musculoskeletal: (+) myalgias Objective BP 102/64 Pulse 92 Temp 36.8 ?C (98.2 ?F) Resp 16 Wt 79.1 kg (174 lb 6.1 oz) SpO2 97% No past medical history on file. No past surgical history on file. ALLERGIES Patient has no known allergies. MEDICATIONS No prescriptions on file. No family history on file. SOCIAL HISTORY[1] Physical Exam Vitals and nursing note reviewed. Constitutional: General: He is not in acute distress. Appearance: Normal appearance. He is not ill-appearing. Cardiovascular: Rate and Rhythm: Normal rate and regular rhythm. Heart sounds: Normal heart sounds. Pulmonary: Effort: Pulmonary effort is normal. No respiratory distress. Breath sounds: Normal breath sounds. No wheezing or rales. Abdominal: General: Bowel sounds are normal. There is no distension. Palpations: Abdomen is soft. There is no mass. Tenderness: There is generalized abdominal tenderness. There is no guarding. Skin: General: Skin is warm and dry. Findings: No erythema or rash. Neurological: Mental Status: He is alert. { 1. Pelvic cramping (R10.2) 2. Nausea (R11.0) 3. Diarrhea, unspecified type (R19.7) 4. Loss of appetite (R63.0) - Acute onset of symptoms for one week, including nausea, decreased appetite, and diarrhea following travel to [place]; initial fever and chills resolved after two days. - Differential includes infectious gastroenteritis - Ordered stool studies to evaluate for bacterial pathogens. - Ordered basic blood work to assess for infection and evaluate liver and kidney function. - Advised to maintain adequate hydration with water and Gatorade. - Will defer medication until diagnostic results are available. - Will follow up with patient by phone once results are available. 5. Microscopic hematuria (R31.29) - Urinalysis showed trace blood and ketones no convincing evidence of UTI. - Urine sample sent for culture to rule out infection. - Follow-up with your PCP in 3-5 days if symptoms have not improved or sooner if symptoms worsen - Discussed red flags and need for immediate medical evaluation if any occur. - Discussed supportive care treatment with fluids, rest and analgesia. - Discussed expected course of illness Veronique Bustamante APRN.MINK FARMER and Recording using girnarsoft software for draft documentation of the visit was discussed with the patient/authorized patient relations representative; all questions welcomed and answered. Patient/authorized patient relations representative agreed to proceed Disposition The patient was discharged. OTC Medications were advised: Tylenol/ibuprofen Procedures [1] Social History Tobacco Use - Smoking status: Every Day Types: Cigarettes - Smokeless tobacco: Never [facility] 11-28-2024 History of Presen t illness Narrative [facility] [place] Parker Moore is a 39 year old male. Patient presents with: Diarrhea: gi upset and nausea x 1 week Diarrhea Pertinent negatives include no chills. The patient is a 39-year-old male presenting with abdominal pain, diarrhea, and anorexia x1 week. Abdominal Pain and Diarrhea: - Abdominal pain and diarrhea x1 week. - Initially experienced fever and chills for 2 days, which have since resolved. - Reports anorexia and immediate diarrhea following food intake. - Describes stools as partially formed, followed by diarrhea. - Recent travel to [place]; symptoms worsened after returning. - Denies use of medications for symptom relief; increasing fluid intake with Gatorade and water. - Denies hematochezia, melena, nausea, or emesis. - Describes some pelvic cramping and discomfort Dysuria: - Reports mild dysuria. Reports recent use of clindamycin for 10 days for treatment of suspected tonsillar abscess (see 10/25/24 visit). Review of Systems Constitutional: Positive for appetite change and fatigue. Negative for chills and fever. Gastrointestinal: Positive for diarrhea. Constitutional: (+) decreased appetite Gastrointestinal: (+) abdominal pain, (+) diarrhea Genitourinary: (+) dysuria Musculoskeletal: (+) myalgias Objective BP 102/64 Pulse 92 Temp 36.8 C (98.2 F) Resp 16 Wt 79.1 kg (174 lb 6.1 oz) SpO2 97% No past medical history on file. No past surgical history on file. ALLERGIES Patient has no known allergies. MEDICATIONS No prescriptions on file. No family history on file. SOCIAL HISTORY[1] Physical Exam Vitals and nursing note reviewed. Constitutional: General: He is not in acute distress. Appearance: Normal appearance. He is not ill-appearing. Cardiovascular: Rate and Rhythm: Normal rate and regular rhythm. Heart sounds: Normal heart sounds. Pulmonary: Effort: Pulmonary effort is normal. No respiratory distress. Breath sounds: Normal breath sounds. No wheezing or rales. Abdominal: General: Bowel sounds are normal. There is no distension. Palpations: Abdomen is soft. There is no mass. Tenderness: There is generalized abdominal tenderness. There is no guarding. Skin: General: Skin is warm and dry. Findings: No erythema or rash. Neurological: Mental Status: He is alert. { 1. Pelvic cramping (R10.2) 2. Nausea (R11.0) 3. Diarrhea, unspecified type (R19.7) 4. Loss of appetite (R63.0) - Acute onset of symptoms for one week, including nausea, decreased appetite, and diarrhea following travel to [place]; initial fever and chills resolved after two days. - Differential includes infectious gastroenteritis - Ordered stool studies to evaluate for bacterial pathogens. - Ordered basic blood work to assess for infection and evaluate liver and kidney function. - Advised to maintain adequate hydration with water and Gatorade. - Will defer medication until diagnostic results are available. - Will follow up with patient by phone once results are available. 5. Microscopic hematuria (R31.29) - Urinalysis showed trace blood and ketones no convincing evidence of UTI. - Urine sample sent for culture to rule out infection. - Follow-up with your PCP in 3-5 days if symptoms have not improved or sooner if symptoms worsen - Discussed red flags and need for immediate medical evaluation if any occur. - Discussed supportive care treatment with fluids, rest and analgesia. - Discussed expected course of illness Veronique Bustamante APRN.MINK FARMER and Recording using girnarsoft software for draft documentation of the visit was discussed with the patient/authorized patient relations representative; all questions welcomed and answered. Patient/authorized patient relations representative agreed to proceed Disposition The patient was discharged. OTC Medications were advised: Tylenol/ibuprofen Procedures [1] Social History Tobacco Use Smoking status: Every Day Types: Cigarettes Smokeless tobacco: Never documented in this encounter [facility] 10-25-2024 Note HNO ID: [id number] Author: ANA JESUS APRN.MINK FARMER Service: ? Author Type: Nurse Practitioner Type: Progress Notes Filed: 10/25/2024 15:17 Note Text: [facility] Moore is a 39 year old male. Patient presents with: Sore Throat: Headache, Left side of throat swollen redness and pain x 5 days Ear Pain: Left ear pain x 5 days Sore Throat Ear Pain Associated symptoms include a sore throat. Sore Throat: - Onset of last week. - Able to swallow saliva, though it is uncomfortable. Left Otalgia: - Onset of last week. - Describes pain as killing me. Headache: - Onset of last week. - Intermittent, with increased severity when medication wears off. URI Symptoms: - Left-sided nasal congestion, resolved today. - Denies cough. Review of Systems HENT: Positive for sore throat. Head: (+) headache Ears/Nose/Mouth/Throat: (+) sore throat, (+) left ear pain, (-) runny nose, (-) nasal congestion, (-) dysphagia Respiratory: (-) cough Psychiatric: (+) anxiety Objective BP 157/82 Pulse 85 Temp 37.3 ?C (99.2 ?F) Resp 20 Wt 77 kg (169 lb 12.1 oz) SpO2 98% Physical Exam Vitals reviewed. Constitutional: Appearance: Normal appearance. HENT: Head: Normocephalic. Jaw: No trismus. Right Ear: Tympanic membrane, ear canal and external ear normal. Left Ear: Tympanic membrane, ear canal and external ear normal. Mouth/Throat: Mouth: Mucous membranes are moist. Pharynx: Uvula midline. Posterior oropharyngeal erythema present. No oropharyngeal exudate. Tonsils: Tonsillar abscess present. No tonsillar exudate. Eyes: Extraocular Movements: Extraocular movements intact. Cardiovascular: Rate and Rhythm: Normal rate and regular rhythm. Heart sounds: Normal heart sounds. Pulmonary: Effort: Pulmonary effort is normal. No respiratory distress. Breath sounds: Normal breath sounds. No wheezing, rhonchi or rales. Lymphadenopathy: Cervical: Cervical adenopathy present. Neurological: Mental Status: He is alert. Assessment/Plan: { 1. Sore throat (J02.9) 2. Tonsil, abscess (J36) - Acute onset of symptoms since last , including sore throat, severe left ear pain, headache, and transient nasal congestion; no cough or significant dysphagia. - Strep test performed during visit that was negative - left tonsil is 2-3+ in erythematous. No exudate - he is tolerating secretions and able to speak in complete sentences - will start treatment with clindamycin - Encouraged to follow-up with ENT - reviewed symptoms to present to ER and to have a low threshold to go Recording using girnarsoft software for draft documentation of the visit was discussed with the patient/authorized patient relations representative; all questions welcomed and answered. Patient/authorized patient relations representative agreed to proceed Ana Jesus APRN.MINK FARMER MDM Procedures [facility] 07-19-2021 History of Presen t illness Narrative This note was created using [employer]. Subjective Parker Moore is a 35 year old male. HPI Patient presents with low back pain over the past 3 weeks. He denies injury or trauma. 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 Sometimes it feels better for a few days and then he will go back to work and it will hurt for 2 or 3 days after that. Denies any pain radiating into his legs. Denies significant back problems previously. No abdominal pain. No urinary complaints. He has not tried any obot-tir-ghdsrxi medicines. No fever or chills. Pain is worsened with bending and twisting. Review of Systems Constitutional: Negative for chills and fever. HENT: Negative. Respiratory: Negative. Cardiovascular: Negative. Gastrointestinal: Negative for abdominal pain. Genitourinary: Negative for dysuria, flank pain, frequency and hematuria. Musculoskeletal: Positive for back pain. All other systems reviewed and are negative. No past medical history on file. No current outpatient medications on file. No current facility-administered medications for this visit. No past surgical history on file. No family history on file. Social History Tobacco Use Smoking status: Not on file Smokeless tobacco: Not on file Substance Use Topics Alcohol use: Not on file Drug use: Not on file Objective BP 130/82 Pulse 81 Temp 36.7 C (98 F) Resp 21 Wt 74.9 kg (165 lb 3.2 oz) SpO2 98% Physical Exam Vitals reviewed. Constitutional: Appearance: Normal appearance. HENT: Head: Normocephalic and atraumatic. Cardiovascular: Rate and Rhythm: Normal rate and regular rhythm. Heart sounds: Normal heart sounds. Pulmonary: Effort: Pulmonary effort is normal. Breath sounds: Normal breath sounds. Musculoskeletal: Comments: Patient is tender in the upper lumbar paraspinal musculature bilaterally. Some spasm noted. No midline tenderness. No step-off or crepitation. Normal strength and sensation in lower extremities. DTRs intact and symmetrical bilaterally. He is able to ambulate normally. Able to go up on toes and back on heels. Pain is worsened with bending and twisting. Neurological: Mental Status: He is alert. Assessment and Plan ASSESSMENT/PLAN: 1. Acute low back pain without sciatica, unspecified back pain laterality - ICD9: 724.2, ICD10: M54.50 X-rays are unremarkable of the lumbar spine. I feel he does have a lumbar sprain. He did not want a prescription for prednisone or Flexeril, was comfortable trying naproxen [id number]. I did suggest possibly getting a follow-up scheduled to establish primary care however patient stated he would try to find his own physician to follow-up with. - XR LUMBAR GENERAL 3V AP/LAT/L5-S1 Merry Patel PA-C documented in this encounter [facility] 07-19-2021 Instructions Merry Patel PA-C - 07/19/2021 2:17 PM EDT Naproxen 500mg twice a day for 2 weeks documented in this encounter [facility] 07-19-2021 History of Presen t illness Narrative Radiology Service Progress Note PATIENT NAME: Parker Moore DATE OF SERVICE: July 19, 2021 TIME: 1:58 PM PATIENT IDENTITY VERIFICATION COMPLETED USING TWO (2) IDENTIFIERS: Name and Date of confirmed by patient verbally. FALL SCREENING: Has the patient had 2 falls in the last year or 1 fall with injury or currently using an Ambulatory Assistive Device (Walker, Cane, Wheelchair, Crutches, etc.)? No PATIENT GENDER DATA: Male PATIENT RELEVANT IMPLANT DATA REVIEWED: Yes RADIOLOGY DEPARTMENT: General X-ray: Exam(s) Completed: Spine X-Ray(s): Lumbar AP / LAT / L5-S1 PERIPHERAL IV DATA: Not applicable SIGNED BY: RT Luda(R) July 19, 2021 1:58 PM documented in this encounter [facility] Evaluation note Diagnosis Acute low back pain without sciatica, unspecified back pain laterality- Primary [facility] Diagnosis Acute low back pain without sciatica, unspecified back pain laterality [facility] [place] [facility] Diagnosis Pelvic cramping- Primary Unspecified symptom associated with female genital organs Nausea Nausea alone Diarrhea, unspecified type Microscopic hematuria Loss of appetite Anorexia [facility] Diagnostic Procedure Only (Urgent) - Closed Specialty Diagnoses / Procedures Referred By Helga douglas Referred To Contact XR IMAGING Diagnoses Acute low back pain without sciatica, unspecified back pain laterality Procedures XR LUMBAR GENERAL 3V AP/LAT/L5-S1 RADEX SPINE LUMBOSACRAL 2/3 VIEWS Merry Patel PA-C [address] [place] [address] Xr Imaging Referral ID Status Reason Start Date Expiration Date V isits Requested Visits Authorized [id number] Closed Auto-Generate d Referral 07/19/2021 08/18/2022 1 1 [facility] for referral (narrative)* Diagnostic Procedure Only (Urgent) - Closed Specialty Diagnoses / Procedures Referred By Contac t Referred To Contact XR IMAGING Diagnoses Acute low back pain without sciatica, unspecified back pain laterality Procedures XR LUMBAR GENERAL 3V AP/LAT/L5-S1 RADEX SPINE LUMBOSACRAL 2/3 VIEWS Merry Patel PA-C [address] [place] [address] [place] [id number] Referral ID Status Reason Start Date Expiration Date V isits Requested Visits Authorized [id number] Closed Auto-Generate d Referral 07/19/2021 08/18/2022 1 1 [facility] for visit Narrative* Diagnostic Procedure Only (Urgent) - Closed Specialty Diagnoses / Procedures Referred By Contac t Referred To Contact XR IMAGING Diagnoses Acute low back pain without sciatica, unspecified back pain laterality Procedures XR LUMBAR GENERAL 3V AP/LAT/L5-S1 RADEX SPINE LUMBOSACRAL 2/3 VIEWS Merry Patel PA-C [address] [place] [address] [place] [address] Referral ID Status Reason Start Date Expiration Date V isits Requested Visits Authorized [id number] Closed Auto-Generate d Referral 07/19/2021 08/18/2022 1 1 [facility] Summary Purpose Family History No Family History Records FoundNo Family History Records Found Advance Directives No Advanced Directives Records FoundNo Advanced Directives Records Found Additional Source Comments Source Comments (unrecognize d section and content) In the event this informatio n is protected by the Federal Confidentiality of Alcohol and Drug Abuse Patient Records regulations: The Federal rules restrict any use of the information to criminally investigate or prosecute any alcohol or drug abuse patient.[facility] the event this information is protected by the Federal Confidentiality of Alcohol and Drug Abuse Patient Records regulations: The Federal rules restrict any use of the information to criminally investigate or prosecute any alcohol or drug abuse patient.[facility] the event this information is protected by the Federal Confidentiality of Alcohol and Drug Abuse Patient Records regulations: The Federal rules restrict any use of the information to criminally investigate or prosecute any alcohol or drug abuse patient.[facility] the event this information is protected by the Federal Confidentiality of Alcohol and Drug Abuse Patient Records regulations: The Federal rules restrict any use of the information to criminally investigate or prosecute any alcohol or drug abuse patient.[facility] Reason for Visit (unrecogniz ed section and content) Reason Comments Back Pain x 3 weeks Reason Comments Diarrhea gi upset and nausea x 1 week Reason Onset Date Comments Results 11/28/2024 Care Teams (unrecognized sec tion and content) Dog Beautician Relationship Specialty Start Date End Date Yusef Hawthorne [facility] [address] [place] [address] PCP - General 01/14/02 Dog Beautician Relationship Specialty Start Date End Date Yusef Hawthorne [facility] [address], [place] [id number] PCP - General 01/14/02 (unrecognized sect ion and content) No Status Records FoundNo Status Records Found INFORMATION SOURCE (unrecogn ized section and content) DATE CREATED AUTHOR 03/08/2023 [facility] DATE CREATED AUTHOR AUTHOR'S ORGANIZ ATION 12/03/2024 [facility] FOR RECORDS PERTAINING TO PATIENTS WHO ARE OR HAVE BEEN ENROLLED IN A CHEMICAL DEPENDENCY/SUBSTANCEABUSE PROGRAM, SOME INFORMATION MAY BE OMITTED. This clinical summary was aggregated from multiple sources. Caution should be exercised in using it in the provision of clinical care. This summary normalizes information from multiple sources, and as a consequence, information in this document may materially change the coding, format and clinical context of patient data. In addition, data may be omitted in some cases. CLINICAL DECISIONS SHOULD BE BASED ON THE PRIMARY CLINICAL RECORDS. [facility] [employer] provides no warranty or guarantee of the accuracy or completeness of information in this document.
[2025-01-13 15:06] LABS: Hematocrit 45.3 % (40-54); Hemoglobin 15.5 g/dL (13.0-16.5); Immature Granulocytes Count 0.010 X10^3/uL (0.0-0.0); Mean Corp Hgb Conc 34.2 g/dL (32-36); Mean Corpuscular Volume 93.0 fL (80-94); Mean Platelet Vol. 8.7 fl (6.2-12.0); NRBC Flagged by Analyzer 0 % (0-5); Platelet Count 344 K/mm3 (150-450); RBC Distribution Width CV 13.2 % (11.6-14.6); RBC Distribution Width SD 45.3 fl (35.1-43.9); Red Blood Count 4.87 M/mm3 (4.6-6.2); White Blood Count 5.6 K/mm3 (4.4-11.0)
[2025-01-13 15:43] LABS: AST(SGOT) 28 U/L (<=37); Alanine Aminotransfer ALT/SGPT 25 U/L (<=46); Albumin, Serum 4.9 g/dL (3.5-5.0); Alkaline Phosphatase 67 U/L (40-129); Anion Gap 9 (5-15); BUN 14 mg/dL (4-19); BUN/Creat Ratio 17.6 RATIO (10-20); Calcium,Total 9.9 mg/dL (7.6-11.0); Carbon Dioxide 26.9 mmol/L (21.0-32.0); Chloride 103 mmol/L (98-108); Cholesterol 170 mg/dL (<=200); Globulin 3.1 g/dL (2.2-4.2); Glucose 98 mg/dL (70-99); Low Density Lipoprotein Calc. 94 mg/dL; Potassium 4.9 mmol/L (3.3-5.1); Triglycerides 55 mg/dL; Very Low Density Lipoprotein 11 mg/dL (5-40); Vitamin D,25 Hydroxy 37.8 ng/mL (30-100); cholesterol:hdl ratio screen 2.62
== END | disposition home or self-care (01) ==
LOC: MFPLAB 12:33
PROVIDERS: PCP Family Medicine; Visit Provider Family Medicine
DX: Z00.00 Encounter for general adult medical examination without abnormal findings (principal); Z13.220 Encounter for screening for lipoid disorders; Z13.1 Encounter for screening for diabetes mellitus
CPT/HCPCS: 36415; 80053; 80061; 82306; 85025